=== PATIENT | female | born 1985 | race Caucasian/White ===

== ENCOUNTER → 2023-06-30 09:47 | Outpatient (BNVA) | payer BC, SELFPAY | PROVIDERS: Visit Provider Physician Assistant Surgical ==

== ENCOUNTER 2023-07-19 08:07 | Outpatient (AMB) | payer BC, SELFPAY ==
--- NOTE | 2023-07-19 08:06 | A.OFFVIS_ITS ---
Intake VS Expanded 07/19/23 08:22 Height 5 ft 3 in Weight 256 lb BMI 45.3 Body Fat % 48 Body Fat Mass 122.8 Fat Free Mass 133.2 Visceral Fat Rating 14 Body Water Mass 95.2 Basal Metabolic Rate/Score 1,907 Intake Visit Reasons: [facility] [address] [facility] BMI 45.4 Allergies No Known Allergies Allergy (Verified 07/19/23 08:06) Medication List - Last Reconciled 07/19/23 by Robert Lynn MD aripiprazole (Abilify) 8 mg PO DAILY fluvoxamine 150 mg PO BEDTIME spironolactone 100 mg PO DAILY HPI [address] [facility] BMI 45.4 HPI Details Start time: 8.00am, End time: 8.53am ?I spent 48 minutes speaking with the patient on the phone plus an additional 5 minutes reviewing and updating records for a total of 53 minutes HPI Comments History of Present Illness Details Previous weight loss efforts: exercise and self diets Wakes up: 9am, Sleeps: 2am Breakfast: oatmeal with berries and a Tamaz[employer] yogurt Lunch: 1.30pm (chicken and rice) Dinner: 5pm (chicken and rice) Snacks: 11pm (chicken and rice), on weekends will also also eat additional meals (sandwich and sushi) Exercise: Gym x5/week Fluids: Coffee: none, Tea: occasionally, soda: diet coke 2-3/wk, juice: once a week, ETOH: occasionally beer PFSH Medical History (Updated 07/19/23 @ 08:15 by Robert Lynn MD) OCD (obsessive compulsive disorder) Rosacea Morbid obesity Family History (Updated 06/30/23 @ 10:46 by Mikayla Hanks CMA) Maternal Uncle Cancer Social History (Updated 06/30/23 @ 10:45 by Mikayla Hanks CMA) Alcohol intake: current Alcohol intake frequency: holidays/special occasions only Alcohol type: beer Patient Tobacco Use Status: Never used Tobacco Assessment & Plan Assessment & Plan (1) Morbid obesity: Code(s): E66.01 - Morbid (severe) obesity due to excess calories Plan: 1.? Plan for lap sleeve gastrectomy. If diaphragmatic or ventral hernias are present at time of surgery, these will be repaired laparoscopically as well. Risks and complications were discussed in detail including possible conversion to an open procedure, anastomotic leak, bleeding requiring transfusion, small bowel obstruction, , DVT and pulmonary embolism, cardiac, or pulmonary co mplications, as longterm complications such as anastomotic ulcer, insufficient weight loss and vitamin deficiencies. I emphasized the importance of close follow-up, adherence to instructions and good communication. 2. Nutritional counseling. Start with 2 CELEBRATE REBUILD protein (buy at [facility] [employer]) shakes (HALF scoop EACH in 8oz low fat unsweetened almond milk each) at 10am-12pm and 1pm-3pm, 1 protein bar (CELEBRATE protein bars, buy at [facility] [employer]) at 4pm-6pm, dinner at 7pm (10 forks of protein and 10 forks of salad/vegetables) AND TWO more protein bars after dinner at 9pm-11pm and 12am-2am. So you do 2 protein shakes, 3 protein bars and one meal per day. Meal to include lean meat (beef, fish, pork, turkey, chicken), or thai yogurt, or egg whites, or beans with a salad with olive oil and fruits (berries, pears, apples, kiwi). Avoid salt, breads, potatoes, rice, pasta, desserts. 3. Each shake would be drunk slowly, like coffee in a period of 2 hours. 4. Cut each bar in 4 pieces and eat each piece in 30min ?to make each bar last 2 hours. 5. I emphasized the importance of measuring accurately the food portion and measure it when serving the food in plate 6. The meal portions include 10 full-size forks of meat and 10 full-size forks of salad. You always eat the meat portion but you can replace up to 5 forks for salad/vegetables with rice, potatoes or pasta, or a fruit ?if you like. The less you do it the better weight loss will be. 7. One full-size fork is what it can be scooped on the fork without falling aside and not what can be bit with the fork. Use regular forks like those you find in a typical restaurant. 8.? Please send me weight measurements as soon as possible and then once a week. Always include your diet and exercise plan. 9. Start treadmill with an incline of 2.0 and speed of 3.0. Increase incline by 1 every 3 min to a max incline of 8.0, stay 3min at 8.0 and then return to 2.0 and repeat same steps until calorie goal is met. Goal is to burn 2000 calories per week on exercise, which means either 300 calories daily, or 400 calories 5 days per week, or 500 calories 4 days per week, or 650 calories 3 days per week. 10. The best choice would be to purchase a stationary bike, elliptical or treadmill at home that can track calories. Let me know if you do so I can give you an exercise plan. 11.?It is important of avoiding and for at least 18 months postoperatively and has been discussed at the infosession. 12. Goal is to lose at least 1.5-2lbs per week 13. Goal to lose 10% of your weight before surgery, which is about 25lbs. Ultimate weight goal: 231lbs before surgery 14. Please follow the diet plan exactly without any change. If you don't like something about the plan or you feel hungry you need to communicate with me so I can help you revise the plan. You should not change the plan yourself. Orders: Orders Insulin Today E66.01 - Morbid (severe) obesity due to excess calories IRON PROFILE Today E66.01 - Morbid (severe) obesity due to excess calories Zinc Today E66.01 - Morbid (severe) obesity due to excess calories TSH reflex Free T4 Today E66.01 - Morbid (severe) obesity due to excess calories Vitamin D 25-OH Total Today E66.01 - Morbid (severe) obesity due to excess calories ECG 12 lead EKG Today E66.01 - Morbid (severe) obesity due to excess calories Hemoglobin A1c Today E66.01 - Morbid (severe) obesity due to excess calories H Pylori Breath Test Today E66.01 - Morbid (severe) obesity due to excess calories Complete Blood Count Auto Diff Today E66.01 - Morbid (severe) obesity due to excess calories Lipid Panel Today E66.01 - Morbid (severe) obesity due to excess calories Comprehensive Met. Panel Today E66.01 - Morbid (severe) obesity due to excess calories Vitamin B12 and Folate Today E66.01 - Morbid (severe) obesity due to excess calories C Reactive Protein Today E66.01 - Morbid (severe) obesity due to excess calories Vitamin B1 Today E66.01 - Morbid (severe) obesity due to excess calories Vitamin A Today E66.01 - Morbid (severe) obesity due to excess calories Ferritin Today E66.01 - Morbid (severe) obesity due to excess calories US abdomen comp w elastography Today E66.01 - Morbid (severe) obesity due to excess calories XR chest 2V Today E66.01 - Morbid (severe) obesity due to excess calories FL upper GI w air Today E66.01 - Morbid (severe) obesity due to excess calories Referrals Nutrition/Dietitian Referral E66.01 - Morbid (severe) obesity due to excess calories Behavioral Health Referral E66.01 - Morbid (severe) obesity due to excess calories Telehealth Telehealth Location of provider rendering services: practice address Location of patient: address on file Patient Identification confirmed using: Name, : Yes Telehealth method: voice only Patient verbally consented to treatment: Yes Patient verbally consented to billing insurance company: Yes Patient informed of any privacy concerns related to visit: Yes Minutes spent on Phone/Video with Pt.: 53 Coding Level of Care Code Tele [facility] Pt Level 4 (75710) Diagnoses Morbid obesity E66.01 Time Spent (min) 53
[2023-07-19 08:22] VITALS: BMI 45.3
== END 2023-07-19 08:54 | disposition home or self-care (01) ==
LOC: HO.HBS 08:08
PROVIDERS: Visit Provider Surgery
DX: E66.01 Morbid (severe) obesity due to excess calories (principal); Z68.42 Body mass index [BMI] 45.0-49.9, adult
CPT/HCPCS: 99443

== ENCOUNTER → 2023-07-19 08:07 | Outpatient (BNVA) | payer BC, SELFPAY | PROVIDERS: Visit Provider Surgery ==

== ENCOUNTER → 2023-07-23 12:31 | Outpatient (REF) | payer BC, SELFPAY ==
--- NOTE | ~2023-07-23 | XR_ITS ---
EXAMINATION: XR CHEST CLINICAL INFORMATION: Morbid severe obesity did access calories, preop. COMPARISON: None available. TECHNIQUE: 2 views of the chest were obtained. FINDINGS: There is no gross pneumothorax. Lung volumes are low. Linear radiopaque devices projecting over the bilateral breast shadows, possibly representing nipple rings, and correlation with clinical exam recommended for confirmation. No pleural effusion. No focal consolidation to suggest pneumonia. XR/XR chest 2V IMPRESSION: 1. No evidence of pneumonia. 2. Linear radiopaque devices projecting over the bilateral breast shadows, possibly representing nipple rings, and correlation with clinical exam recommended for confirmation.
--- NOTE | 2023-07-23 12:38 | ECG_ITS ---
Test Reason : MORBID OBESITY Blood Pressure : / mmHG Vent. Rate : 071 BPM Atrial Rate : 071 BPM P-R Int : 168 ms QRS Dur : 088 ms QT Int : 402 ms P-R-T Axes : 041 023 002 degrees QTc Int : 436 ms Normal sinus rhythm with sinus arrhythmia Normal ECG No previous ECGs available Referred By: Robert Lynn Electronically Signed By:Rubio Small
== END ==
LOC: HO.CARD 12:31
PROVIDERS: Visit Provider Surgery
DX: E66.01 Morbid (severe) obesity due to excess calories (principal)
CPT/HCPCS: 71046; 93005

== ENCOUNTER → 2023-07-23 12:38 | Outpatient (BNV) | payer BC, SELFPAY | PROVIDERS: Visit Provider Internal Medicine Cardiovascular Disease | DX: E66.01 Morbid (severe) obesity due to excess calories (principal) | CPT/HCPCS: 93010 ==

== ENCOUNTER 2023-07-27 10:18 | Outpatient (REF) | payer BC, SELFPAY ==
[2023-07-27 10:36] LABS: MANUAL DIFF FLAG NO
[2023-07-27 10:46] LABS: Basophils Percent Auto 0.6 % (0-2); Eosinophils Absolute Auto 0.1 X10*3/uL (0.0-0.4); Eosinophils Percent Auto 1.9 % (0-4); Hemoglobin 13.4 g/dl (12.0-16.0); Imm Gran Abs Auto 0.01 X10*3/uL (0.00-0.03); Imm Gran Pct Auto 0.2 % (0.0-0.4); Lymphocytes Absolute Auto 1.1 X10*3/uL (1.2-4.9); Lymphocytes Percent Auto 20.8 % (20-40); Mean Corpuscular HGB Conc 32.7 g/dl (31.0-35.0); Mean Corpuscular Hemoglobin 28.8 pg (27.0-33.0); Monocytes Absolute Auto 0.3 X10*3/uL (0.1-1.2); Monocytes Percent Auto 6.2 % (2-11); Neutrophils Absolute Auto 3.7 x10*3/uL (2.0-8.3); Neutrophils Percent Auto 70.3 % (45-73); Platelet Count 282 X10*3/uL (160-400); Red Blood Count 4.66 X10*6/uL (4.20-5.50); Red Cell Distribution Width 12.9 % (11.0-16.0); White Blood Count 5.2 X10*3/uL (4.8-10.8)
[2023-07-27 10:57] LABS: Estimated Average Glucose 97 mg/dL
[2023-07-27 11:32] LABS: Alanine Aminotransferase 34 U/L (0-31); Alkaline Phosphatase 72 U/L (39-117); Anion Gap 13 (12-20); Aspartate Amino Transferase 25 U/L (5-31); Bilirubin Total 0.4 mg/dL (0.0-1.0); Blood Urea Nitrogen 15 mg/dL (9-16); C Reactive Protein 1.16 mg/dL (< or = 0.50); Calcium 8.9 mg/dL (8.4-10.2); Carbon Dioxide 26 mmol/L (22-29); Chloride 106 mmol/L (96-108); Cholesterol 218 mg/dL (<200); Estimated Glomerular Filt Rate > 60; Glucose Random 103 mg/dL (60-115); HDL Cholesterol 69 mg/dL (>40); Iron 61 mcg/dL (30-160); LDL Cholesterol Calculated 128 mg/dL (<100); Percent Iron Saturation 17 % (15-50); Potassium 4.1 mmol/L (3.3-5.1); Sodium 141 mmol/L (135-145); Total Iron Binding Capacity 349 mcg/dL (228-428); Total Protein 6.9 g/dL (6.5-8.0); Triglycerides 106 mg/dL (<150); Unsaturated Iron Binding 288 ug/dL
[2023-07-27 11:46] LABS: Ferritin 56 ng/mL (10-122); TSH reflex Free T4 1.16 uIU/mL (0.32-4.0); Vitamin D 25-OH Total 14.1 ng/mL (>30)
[2023-07-27 11:51] LABS: Folate 14.2 ng/mL (> or = 4.0); Vitamin B12 457 pg/mL (200-900)
[2023-07-27 11:56] LABS: Insulin 7 uU/mL (2-29)
[2023-07-29 12:59] LABS: Zinc 80 mcg/dL (60-130)
[2023-07-30 02:03] LABS: Vitamin A 37 mcg/dL (38-98)
[2023-07-31 11:28] LABS: Vitamin B1 11 nmol/L (8-30)
== END 2023-07-27 10:19 | disposition home or self-care (01) ==
LOC: HO.LAB 10:18
PROVIDERS: Visit Provider Surgery
DX: E66.01 Morbid (severe) obesity due to excess calories (principal)
CPT/HCPCS: 36415; 80053; 80061; 82306; 82607; 82728; 82746; 83036; 83525; 83540; 84425; 84443; 84590; 84630; 85025; 86140

== ENCOUNTER 2023-08-06 11:27 | Outpatient (AMB) | payer BC, SELFPAY ==
--- NOTE | 2023-08-06 11:18 | MHC.AMNUTRGE ---
Intake Intake Visit Reasons: VIDEO Initial Nutrition SW Insurance Consultant Required: No Allergies No Known Allergies Allergy (Verified 07/19/23 08:06) HPI Nutrition Presentation Reason for consult elevated BMI Diet Assmnt Details Does not like sweets. is struggling with the nutrition plan. I was interested in surgery but I don't think I can do the shakes . Feels that she hit a breaking point on Weds. ate 2 cheeseburgers and fries and beer , felt so deprived that it triggered a binge. Eats too quickly. doesn't eat mindfully. she feels that she is not ready for bariatric surgery at this time after learning more about the process and procedure. she canot do the bars and shakes any longer. Likes using the bites method of portion control. She is very active and really enjoys weight lifting and exercise but lately hasn't had enough energy to do this. so she has stopped followingher workout split 265# in 2013 , woudl go to [employer] and get 6 cheeseburgers. then moved to [place] and lost weight down to 150# in 2019. this past September, was 180# and gained 80# following a body building program. Acknowledges the misinformation out there . Highest weight (pounds) 260 Dietary counseling reduction Who buys your food self Who prepares/cooks your food self Meal frequency regular: breakfast (grek yogurt, ), lunch (chicken and rice) and dinner (chicken and rice ) Lifestyle Exercise Yes Food frequency Vegetables: daily, Grains/pasta/breads/cereal (carbs): daily and Meats/poultry/fish (protein): daily Diagnosis Nutrition problem #1 inadequate energy intake As related to (etiology) #1 excess energy intake As evidenced by (sign/symptom) #1 high BMI Monitoring/Goals Nutrition problem monitoring total energy intake, level of knowledge/skill, total PRO intake, total CHO intake and weight Outcome progress progressing Learning/Education Readiness to learn excellent Stages of change action Educational materials provided Yes Most Recent Diabetes Results: Cholesterol 218 mg/dL (<200) H 07/27/23 HDL Cholesterol 69 mg/dL (>40) 07/27/23 Triglycerides 106 mg/dL (<150) 07/27/23 Creatinine 0.71 mg/dL (0.5-1.4) 07/27/23 Blood Urea Nitrogen 15 mg/dL (9-16) 07/27/23 Sodium 141 mmol/L (135-145) 07/27/23 Potassium 4.1 mmol/L (3.3-5.1) 07/27/23 Chloride 106 mmol/L (96-108) 07/27/23 Carbon Dioxide 26 mmol/L (22-29) 07/27/23 Calcium 8.9 mg/dL (8.4-10.2) 07/27/23 AST 25 U/L (5-31) 07/27/23 ALT 34 U/L (0-31) H 07/27/23 Total Protein 6.9 g/dL (6.5-8.0) 07/27/23 Albumin 4.0 g/dL (3.5-5.0) 07/27/23 [facility] Medical History (Updated 08/02/23 @ 16:48 by Robert Lynn MD) OCD (obsessive compulsive disorder) Rosacea Morbid obesity Family History (Updated 06/30/23 @ 10:46 by Mikayla Hanks CMA) Maternal Uncle Cancer Social History (Updated 06/30/23 @ 10:45 by Mikayla Hanks CMA) Alcohol intake: current Alcohol intake frequency: holidays/special occasions only Alcohol type: beer Patient Tobacco Use Status: Never used Tobacco Assessment & Plan Assessment & Plan (1) Morbid obesity: Code(s): E66.01 - Morbid (severe) obesity due to excess calories Plan Pt feels that surgery is not the best intervention for her at this time. she would like to cancel all upcoming appts and medical testing. she would like to call office back to establish with PA for [facility]. Telehealth Telehealth Location of provider rendering services: other ([facility] address, [facility] ) Location of patient: address on file Patient Identification confirmed using: Name, : Yes Telehealth method: voice only Patient verbally consented to treatment: Yes Patient verbally consented to billing insurance company: Yes Patient informed of any privacy concerns related to visit: Yes Minutes spent on Phone/Video with Pt.: 50 Coding Level of Care Code Nutr Indiv Intake (70322) Diagnoses Morbid obesity E66.01 Time Spent (min) 50
== END 2023-08-06 11:58 | disposition home or self-care (01) ==
LOC: HO.HBS 11:28
PROVIDERS: Visit Provider Dietitian, Registered
DX: E66.01 Morbid (severe) obesity due to excess calories (principal)

== ENCOUNTER → 2023-08-06 11:27 | Outpatient (BNVA) | payer BC, SELFPAY | PROVIDERS: Visit Provider Dietitian, Registered | DX: E66.01 Morbid (severe) obesity due to excess calories (principal); Z71.3 Dietary counseling and surveillance | CPT/HCPCS: 97802 ==